=== PATIENT | female | born 1985 | race African-American/Black ===

== ENCOUNTER 2017-04-12 19:45 | Observation (INO) | payer MEDICAID, OTHER ==
[~2017-04-12] VITALS: Ht 175.3 cm; Wt 70.0 kg
[2017-04-12 19:47] VITALS: BP 136/84; PULSE 68; RESP 16; TEMP 98.6; O2SAT 100
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
[2017-04-12] MEDS ORDERED: ASPIRIN 325 MG TAB PO ONE (20:30)
--- NOTE | 2017-04-12 20:42 | RADRPT ---
EXAM DATE/TIME: 04/12/2017 20:28 [facility] COMPARISON: No previous studies available for comparison. INDICATIONS : Chest pain. MEDICAL HISTORY : None. SURGICAL HISTORY : None. ENCOUNTER: Initial ACUITY: 2 days PAIN SCORE: 2/10 LOCATION: Bilateral chest FINDINGS: The lungs are clear without infiltrate, nodule, or mass. There is no appreciable pleural effusion fo r technique. Heart and mediastinum are unremarkable. CONCLUSION: No acute cardiopulmonary disease. Blaine Corea MD on April 12, 2017 at 20:40 Board Certified Radiologist. This report was verified electronically.
[2017-04-12 20:54] LABS: AUTOMATED NEUTROPHIL # 2.4 TH/MM3 (1.8-7.7); BASOPHIL % 0.6 % (0.0-2.0); EOSINOPHIL # 0.1 TH/MM3 (0-0.4); EOSINOPHIL % 1.7 % (0.0-4.0); HEMATOCRIT 37.1 % (35.0-46.0); HEMOGLOBIN 12.5 GM/DL (11.6-15.3); LYMPH % 38.2 % (9.0-44.0); LYMPHOCYTE # 1.8 TH/MM3 (1.0-4.8); MEAN CELL VOLUME 84.9 FL (80.0-100.0); MEAN CORPUSCULAR HEMOGLOBIN 28.6 PG (27.0-34.0); MEAN CORPUSCULAR HGB CONC 33.7 % (32.0-36.0); MEAN PLATELET VOLUME 9.9 FL (7.0-11.0); MONO % 8.3 % (0.0-8.0); MONOCYTE # 0.4 TH/MM3 (0-0.9); NEUT % 51.2 % (16.0-70.0); PLATELET COUNT 139 TH/MM3 (150-450); RED BLOOD COUNT 4.37 MIL/MM3 (4.00-5.30); RED CELL DISTRIBUTION WIDTH 14.1 % (11.6-17.2); WHITE BLOOD COUNT 4.7 TH/MM3 (4.0-11.0)
[2017-04-12 20:58] VITALS: O2SAT 98
[2017-04-12 21:06] LABS: ALBUMIN 3.8 GM/DL (3.4-5.0); AST (GOT) 9 U/L (15-37); BLOOD UREA NITROGEN 6 MG/DL (7-18); CALCIUM 8.7 MG/DL (8.5-10.1); CHLORIDE 107 MEQ/L (98-107); CREATININE 0.75 MG/DL (0.50-1.00); GLOMERULAR FILTRATION RATE 108 ML/MIN (>89); GLUCOSE,RANDOM 83 MG/DL (74-106); SODIUM (NA) 139 MEQ/L (136-145)
[2017-04-12 21:11] LABS: ALKALINE PHOSPHATASE 46 U/L (45-117); ALT (GPT) 12 U/L (10-53); TOTAL BILIRUBIN ADULT 0.6 MG/DL (0.2-1.0); TOTAL PROTEIN 6.7 GM/DL (6.4-8.2); TROPONIN I LESS THAN 0.02 NG/ML (0.02-0.05)
[2017-04-12 21:15] LABS: PROTHROMBIN TIME - PATIENT 10.2 SEC (9.8-11.6)
[2017-04-12 21:28] VITALS: O2SAT 98
[2017-04-12] MEDS ORDERED: ONDANSETRON HCL 4 MG/2 ML VIAL IV PUSH PRN (21:30)
[2017-04-12] MEDS ORDERED: ACETAMINOPHEN 500 MG CPLT PO PRN (21:30)
[2017-04-12] MEDS ORDERED: SODIUM CHLORIDE 0.9% FLUSH 10 ML FLUSH IV FLUSH PRN (21:30)
[2017-04-13] VITALS (7 sets, daily range): BP systolic 103–120; BP diastolic 55–67; PULSE 57–67; RESP 16; TEMP 98.2–99.4; O2SAT 99–100
[2017-04-13 00:45] LABS: TROPONIN I LESS THAN 0.02 NG/ML (0.02-0.05)
[2017-04-13] MEDS ORDERED: ACETAMINOPHEN 500 MG CPLT PO PRN (02:15)
[2017-04-13] MEDS ORDERED: ZOLPIDEM TARTRATE 10 MG TAB PO PRN (02:15)
[2017-04-13] MEDS: ACETAMINOPHEN/HYDROcodone 325 MG/5 MG TAB PO PRN ×2 (02:19→09:26)
[2017-04-13 02:55] LABS: TROPONIN I LESS THAN 0.02 NG/ML (0.02-0.05)
[2017-04-13] MEDS ORDERED: SODIUM CHLORIDE 0.9% FLUSH 10 ML FLUSH IV FLUSH SCH (09:00)
--- NOTE | 2017-04-13 09:37 | HHI.HP ---
HPI Primary Care Physician No Primary Care Physician Chief Complaint Chest pain History of Present Illness This is a 32-year-old female that presents to ED with a complaint of a dull chest pain 1 week. States it began in the left side of her neck and radiate down to the chest on the left side. Constantly there for a week. And worsened with movement of her arm. Thinks she may have injured at work. 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 Denies shortness breath, nausea, or diaphoresis with her symptoms. Denies prior history of CAD but states her mother had an AK at age 40. Denies . Denies recent illnesses. Denies . Review of Systems General: Patient denies fevers, chills recent, and recent travel HEENT: Patient denies headache, sore throat, difficulty swallowing. Cardiovascular: Has the chest discomfort as mentioned above. Denies sensation of heart beating rapidly or irregularly. No syncope. Denies diaphoresis. Respiratory: Denies shortness of breath or inspirational chest discomfort. Denies coughing wheezing or hemoptysis. GI: Patient denies nausea, vomiting, diarrhea, abdominal pain, bloody stools. Musculoskeletal: Patient denies joint pain or edema. Denies calf pain or edema. Neurovascular: Patient denies numbness, tingling, weakness in extremities. Denies headache. Endocrine: Denies polyuria and polydipsia. Hematologic: Denies easy bruising. Skin: Denies rash or itching. Past Family Social History Allergies: Coded Allergies: No Known Allergies (Verified Allergy, Unknown, 04/12/17) Past Medical History Denies hypertension, hyperlipidemia, diabetes, and known CAD. Past Surgical History Tonsillectomy. Tubal ligation. Reported Medications Reported Meds & Active Scripts Active No Active Prescriptions or Reported Medications Active Ordered Medications Current Medications Medications (Trade) Dose Ordered Sig/Agustin Route Start Time Stop Time Status Last Admin (NS Flush) 2 ml UNSCH PRN IV FLUSH 04/12/17 21:30 (NS Flush) 2 ml BID IV FLUSH 04/13/17 09:00 (Tylenol) 500 mg Q4H PRN PO 04/12/17 21:30 (Zofran Inj) 4 mg Q6H PRN IV PUSH 04/12/17 21:30 (Ambien) 10 mg HS PRN PO 04/13/17 02:15 04/13/17 02:17 (Tylenol) 1,000 mg Q6H PRN PO 04/13/17 02:15 (Berkey 5-325 Mg) 1 tab Q6H PRN PO 04/13/17 02:15 04/13/17 09:26 Family History States her mother at age 40 of a myocardial infarction. Social History Nonsmoker. Denies alcohol or illicit drugs. Physical Exam Vital Signs Vital Signs Date Time Temp Pulse Resp B/P (MAP) Pulse Ox O2 Delivery O2 Flow Rate FiO2 04/13/17 08:40 99 21 04/13/17 07:34 98.4 64 16 103/55 (71) 100 04/13/17 04:00 65 04/13/17 03:58 98.2 64 16 112/59 (76) 99 04/13/17 03:19 16 04/13/17 00:08 99.4 57 16 120/67 (84) 100 04/12/17 21:28 98 04/12/17 20:58 98 Room Air 04/12/17 19:47 98.6 68 16 136/84 (101) 100 Room Air Physical Exam GENERAL: This is a well-nourished, well-developed patient, in no apparent distress. Patient speaks in clear complete sentences. Patient is pleasant. HEENT: Head is atraumatic and normocephalic. Neck is supple without lymphadenopathy and trachea is midline. No JVD or carotid bruits. CARDIOVASCULAR: Regular rate and rhythm without murmurs, gallops, or rubs. RESPIRATORY: Clear to auscultation. Breath sounds equal bilaterally. No wheezes , rales, or rhonchi. Chest wall is tender. No use of accessory muscles. GASTROINTESTINAL: Abdomen is nontender, nondistended. Abdomen soft. No obvious pulsatile mass or bruit. No CVA tenderness. Strong femoral pulses bilaterally. Normal bowel sounds in all quadrants. MUSCULOSKELETAL: Patient is moving upper and lower extremities freely. No calf tenderness or edema, no Homans sign. Strong pulses in upper and lower extremities. NEUROLOGICAL: Patient is alert and oriented. Cranial nerves 2-12 are grossly intact. No focal deficits and speech is clear. SKIN: No rash and turgor is normal. Laboratory Laboratory Tests Test 04/12/17 20:25 04/13/17 00:00 04/13/17 02:25 White Blood Count 4.7 Red Blood Count 4.37 Hemoglobin 12.5 Hematocrit 37.1 Mean Corpuscular Volume 84.9 Mean Corpuscular Hemoglobin 28.6 Mean Corpuscular Hemoglobin Concent 33.7 Red Cell Distribution Width 14.1 Platelet Count 139 Mean Platelet Volume 9.9 Neutrophils (%) (Auto) 51.2 Lymphocytes (%) (Auto) 38.2 Monocytes (%) (Auto) 8.3 Eosinophils (%) (Auto) 1.7 Basophils (%) (Auto) 0.6 Neutrophils # (Auto) 2.4 Lymphocytes # (Auto) 1.8 Monocytes # (Auto) 0.4 Eosinophils # (Auto) 0.1 Basophils # (Auto) 0.0 CBC Comment DIFF FINAL Differential Comment Prothrombin Time 10.2 Prothromb Time International Ratio 1.0 Activated Partial Thromboplast Time 25.2 Blood Urea Nitrogen 6 Creatinine 0.75 Random Glucose 83 Total Protein 6.7 Albumin 3.8 Calcium Level 8.7 Alkaline Phosphatase 46 Aspartate Amino Transf (AST/SGOT) 9 Alanine Aminotransferase (ALT/SGPT) 12 Total Bilirubin 0.6 Sodium Level 139 Potassium Level 3.5 Chloride Level 107 Carbon Dioxide Level 29.0 Anion Gap 3 Estimat Glomerular Filtration Rate 108 Total Creatine Kinase 125 115 110 Troponin I LESS THAN 0.02 LESS THAN 0.02 LESS THAN 0.02 Creatine Kinase MB 0.5 LESS THAN 0.5 Result Diagram: 04/12/17202404/12/172024 Imaging Last 48 hours Impressions Chest X-Ray 04/12/172009 Signed Impressions: Service Date/Time: Wednesday, April 12, 2017 20:28 - CONCLUSION: No acute cardiopulmonary disease. Blaine Corea MD Course EKGs have sinus rhythm without significant ST segment depressions or elevations. Nonspecific anterior T-wave changes are present. Caprini VTE Risk Assessment Caprini VTE Risk Assessment: No/Low Risk (score <= 1) Caprini Risk Assessment Model Point Value = 1 Point Value = 2 Point Value = 3 Point Value = 5 Age 41-60 Minor surgery BMI > 25 kg/m2 Swollen legs Varicose veins or History of unexplained or recurrent spontaneous Oral contraceptives or hormone replacement Sepsis (< 1 month) Serious lung disease, including pneumonia (< 1 month) Abnormal pulmonary function Acute myocardial infarction Congestive heart failure (< 1 month) History of inflammatory bowel disease Medical patient at bed rest Age 61-74 Arthroscopic surgery Major open surgery (> 45 min) Laparoscopic surgery (> 45 min) Malignancy Confined to bed (> 72 hours) Immobilizing plaster cast Central venous access Age >= 75 History of VTE Family history of VTE Factor V Leiden Prothrombin [id number] Lupus anticoagulant Anticardiolipin antibodies Elevated serum homocysteine Heparin-induced thrombocytopenia Other congenital or acquired thrombophilia Stroke (< 1 month) Elective arthroplasty Hip, pelvis, or leg fracture Acute spinal cord injury (< 1 month) Prophylaxis Regimen Total Risk Factor Score Risk Level Prophylaxis Regimen 0-1 Low Early ambulation 2 Moderate Order ONE of the following: *Sequential Compression Device (SCD) *Heparin 5000 units SQ BID 3-4 Higher Order ONE of the following medications: *Heparin 5000 units SQ TID *Enoxaparin/Lovenox 40 mg SQ daily (WT < 150 kg, CrCl > 30 mL/min) *Enoxaparin/Lovenox 30 mg SQ daily (WT < 150 kg, CrCl > 10-29 mL/min) *Enoxaparin/Lovenox 30 mg SQ BID (WT < 150 kg, CrCl > 30 mL/min) AND/OR *Sequential Compression Device (SCD) 5 or more Highest Order ONE of the following medications: *Heparin 5000 units SQ TID (Preferred with Epidurals) *Enoxaparin/Lovenox 40 mg SQ daily (WT < 150 kg, CrCl > 30 mL/min) *Enoxaparin/Lovenox 30 mg SQ daily (WT < 150 kg, CrCl > 10-29 mL/min) *Enoxaparin/Lovenox 30 mg SQ BID (WT < 150 kg, CrCl > 30 mL/min) AND *Sequential Compression Device (SCD) Assessment and Plan Assessment and Plan * Atypical chest pain: Patient has had serial cardiac enzymes and EKGs for ruling out purposes and was seen by Dr. Augustin Hoffmann of cardiology and the chest pain center. She will have a Gregory protocol ETT and if nonischemic will be discharged home with instructions to follow-up with PCP. Return to ED for interval issues. Don Magallanes Apr 13, 2017 09:37
--- NOTE | 2017-04-13 10:11 | HHI.DCPOC ---
Discharge Care Plan Diagnosis: (1) Chest pain, atypical Goals to Promote Your Health * To prevent worsening of your condition and complications * To maintain your health at the optimal level Directions to Meet Your Goals Take your medications as prescribed Follow your dietary instruction Follow activity as directed Keep your appointments as scheduled Take your immunizations and boosters as scheduled If your symptoms worsen call your PCP, if no PCP go to Urgent Care Center or Emergency Room Smoking is Dangerous to Your Health. Avoid second hand smoke Call the 24-hour hour crisis hotline for domestic abuse at Don Magallanes Apr 13, 2017 10:11
[2017-04-13] MEDS ORDERED: IBUPROFEN 600 MG TAB PO ONE (10:15)
--- NOTE | 2017-04-13 16:33 | EKG ---
Date Performed: 04/13/2017 Time Performed: 02:25:26 PTAGE: 32 years EKG: SINUS BRADYCARDIA BORDERLINE ECG PREVIOUS TRACING : 04/13/2017 00.03 Since previous tracing, no significant change noted DOCTOR: Augustin Hoffmann Interpretating Date/Time 04/13/2017 16:31:42
--- NOTE | 2017-04-13 16:34 | EKG ---
Date Performed: 04/13/2017 Time Performed: 00:03:51 PTAGE: 32 years EKG: SINUS BRADYCARDIA MODERATE T-WAVE ABNORMALITY, CONSIDER ANTERIOR ISCHEMIA ABNORMAL ECG PREVIOUS TRACING : 04/12/2017 20.22 Since previous tracing, no significant change noted DOCTOR: Augustin Hoffmann Interpretating Date/Time 04/13/2017 16:32:24
--- NOTE | 2017-04-13 16:34 | EKG ---
Date Performed: 04/12/2017 Time Performed: 20:22:32 PTAGE: 32 years EKG: Sinus rhythm NONSPECIFIC T-WAVE ABNORMALITY BORDERLINE ECG PREVIOUS TRACING : 11/26/2008 21.59 Since previous tracing, no significant change noted DOCTOR: Augustin Hoffmann Interpretating Date/Time 04/13/2017 16:33:06
--- NOTE | 2017-04-13 16:37 | TR ---
Date Performed: 04/13/2017 Time Performed: 09:34:11 DOCTOR: Augustin Hoffmann DRUG LIST: CLINICAL HISTORY: REASON FOR TEST: REASON FOR ENDING: OBSERVATION: CONCLUSION: DWAYNE PROTOCOL ETT. PATIENT'S CONSTANT CHEST DISCOMFORT DID NOT WORSEN DURING STTRES S TEST. TEST STOPPED AFTER EXCEEDING GOAL HR SECONDARY TO SOB AND LEG FATIGUE.Maximum ZM=733 % Max HR Achieved=92.0% Maximum DV=790/64 Total Exercise Time=10:01 COMMENTS: Patient exercised using the Dwayne protocol. No electrocardiographic changes were seen to suggest ischemia. Hemodynamic response to exercise was normal. No significant arrhythmia was prese nt.
== END 2017-04-13 12:47 | disposition home or self-care (01) ==
LOC: NEPD 19:45 → NEDA 21:24 → NEPFCDU 22:10
DX: R07.89 Other chest pain (principal); R00.1 Bradycardia, unspecified; R94.31 Abnormal electrocardiogram [ECG] [EKG]; J45.909 Unspecified asthma, uncomplicated; M54.9 Dorsalgia, unspecified
CPT/HCPCS: 71045; 80053; 82550; 82552; 84484; 85025; 85610; 85730; 93005; 93017; 99285; G0378